=== PATIENT | female | born 1965 | race Two or more races ===

== ENCOUNTER → 2024-12-11 | Outpatient (CLI) | payer MEDICAID, SELFPAY ==
--- NOTE | 2024-12-11 13:30 | XR_ITS ---
MRI shoulder, right, without contrast. Date and time: December 11, 2024 at 1418 hours INDICATIONS: Right shoulder pain joint clicking stiffness 2 years post injury Technique: Multiple axial, sagittal and coronal sections of the shoulder have been obtained. Siemens high-resolution 1.5 [employer] MRI scanner is utilized. Axial fat-suppressed sections, TR 2350, TE 18 T2-weighted coronal fat-saturated images, TR 3500, TE 7100 T1-weighted coronal images, TR 500, TE 15 T2-weighted sagittal fat-saturated images, TR 3500, TE 57 T1-weighted sagittal sections, TR 504, TE 13. Findings: 3 cm full-thickness tear rotator cuff Subscapularis insertion is intact. Subscapularis bursa is not seen. Long head of the biceps is in the bicipital groove. No definite tear of the biceps superior labral anchor is seen. Retraction of the musculotendinous junction of the rotator cuff is prominent. Tendinosis pattern is moderate. Distance between the acromium and humeral head is 6 mm Atrophy of the supraspinatus muscle is severe. Atrophy of the infraspinatus muscle is moderate. Sagittal sections demonstrate a horizontal acromion. Acromioclavicular joint demonstrates moderate osteoarthritis. Osacromiale is not identified. Small anterior labral tears. Bony glenoid fossa on the sagittal sections does not demonstrate osseous defect. Occult fracture or area of avascular necrosis is not seen. Acromioclavicular joint separation is not visible. Defect in the posterolateral margin of the humeral head is not seen Impression: 3 cm full-thickness rotator cuff tear Small anterior labral tears
== END | disposition home or self-care (01) ==
PROVIDERS: PCP Physician Assistant; Referring Provider Physician Assistant; Visit Provider Physician Assistant
DX: S46.011A Strain of muscle(s) and tendon(s) of the rotator cuff of right shoulder, initial encounter (principal); S43.401A Unspecified sprain of right shoulder joint, initial encounter; X58.XXXA Exposure to other specified factors, initial encounter
CPT/HCPCS: 73221

== ENCOUNTER → 2024-12-31 | Outpatient (CLI) | payer MEDICAID, SELFPAY ==
--- NOTE | 2024-12-31 08:45 | XR_ITS ---
Examination: Screening digital mammography, bilateral Computer aided detection 3-D breast Tomosynthesis, bilateral Date and time of exam: 10/02/2024, 9:05 AM Comparisons: November 2023 Indications: Screening Technique: Nonmagnified MLO, CC views of the breasts to been obtained, reconstructed from 3-D Tomosynthesis images. R2 computer aided detection program utilized for evaluation of suspicious masses and/or abnormal calcifications. 3-D Tomosynthesis images obtained. Technologist: Findings: The breasts are heterogeneously dense, which may obscure small masses. No evidence of abnormal masses or suspicious calcifications. Impression: BI-RADS category 1: Negative findings (within normal) Recommend 1 year follow-up mammogram
== END | disposition home or self-care (01) ==
LOC: CDIM 08:50
PROVIDERS: Referring Provider Physician Assistant; Visit Provider Physician Assistant
DX: Z12.31 Encounter for screening mammogram for malignant neoplasm of breast (principal); R92.313 Mammographic fatty tissue density, bilateral breasts
CPT/HCPCS: 77063; 77067

== ENCOUNTER 2025-01-12 14:07 | Emergency (ER) | payer MEDICAID, SELFPAY ==
[2025-01-12 14:38] VITALS: BP 136/77; PULSE 76; RESP 18; TEMP 37; O2SAT 97; BMI 22.8
--- NOTE | 2025-01-12 15:21 | PD.EDEXREM ---
ED Extremity Problem RME/HPI General Chief complaint: Extremity Injury, Upper Stated complaint: rt shoulder surg to on . c/o swell. arm/face Time Seen by Provider: 01/12/25 15:07 Arrival date/time: 01/12/25 14:07 RME / HPI RME / HPI Narrative: 59 year old female who is s/p right shoulder surgery performed [address] Earl Yoo presents to the ED for evaluation of right arm redness/swelling/pain beginning . Accompanied by facial swelling with pain and rash in the right upper extremity. Reportedly the rash and redness was present while getting her dressings changed and nurse in the office had sent images to Dr. Yoo. Patient denies any known allergies or similar reaction to dressing/tape. Denies fevers or chills. Related Data Home Medications ?Medication ?Instructions ?Recorded ?Confirmed acetaminophen 650 mg 650 mg PO Q8H PRN Fever Or Pain 05/05/24 05/05/24 tablet,extended release loperamide 2 mg capsule 2 mg PO PRN PRN Diarrhea 05/05/24 05/05/24 Previous Rx's ?Medication ?Instructions ?Recorded ondansetron HCl 4 mg tablet 4 mg PO TID PRN Nausea And 05/05/24 Vomiting #10 tabs Allergies Allergy/AdvReac Type Severity Reaction Status Date / Time No Known Allergies Allergy Verified 01/12/25 14:16 Review of Systems Review of Systems Narrative Review of Systems: Gen: No fever, no chills, no weight loss EYES: No discharge, no visual changes, no pain HEENT: No ear pain, no congestion, no sore throat PULM: no shortness of breath, no cough, no congestion CV: No chest pain, no palpitations, no chest tightness GI: No nausea, no vomiting, no diarrhea, no pain, no constipation : No frequency, no urgency,? no dysuria Musc/skel: +right shoulder pain, no back pain Skin: + rash with itching sensation, no ecchymosis, no lesions Neuro: No weakness, no headache Past Medical History Past Medical History CARDIAC: Negative Congestive Heart Failure RESPIRATORY: Negative Chronic Obstructive Pulmonary Disease (COPD) GENITOURINARY: Negative Renal Disease ENDOCRINE: Negative Diabetes Mellitus Type 1 or Diabetes Mellitus Type 2 Social History SMOKING STATUS: Never smoker Course Quality Measures none Reevaluation(s) Reevaluation #1: We reviewed treatment plans. Patient is amenable to discharge. Strict return precautions were outlined. Patient was discharged in stable condition. Time: 15:50 Vital Signs Vital signs: Vital Signs Oxygen Delivery Method Room Air 01/12/25 14:07 Extremity Problem MDM Narrative MDM Narrative:: Brooke Packer am scribing for and in the presence of Dr. Jamison. Patient data External records reviewed:: [facility] previous records (I reviewed ED visit on 05/05/2024 ) Clinical information provided by:: patient Social determinants that could affect healthcare access:: none Patient has the following chronic illnesses:: s/p right shoulder surgery 4 days ago How is presenting disease/condition affected by chronic disease/condition?: exacerbated by Evaluation data The following diagnostics were reviewed and interpreted by me:: other (specify) (No diagnostics ordered ) Lab and/or radiology exams considered but not ordered:: None Interpretation Summary: As noted above Medications / Prescriptions Medications or Prescriptions considered but not ordered:: None Medication administrations:: None Consultations Consultation(s) initiated? (list below): Yes Consultation #1 (Physician, Specialty, Details): I spoke with ortho Dr. Yoo who performed patients surgery. Sent over images of patients shoulder/arm from todays visit. Does not recommend Prednisone and only Benadryl every 8 hours for the rash. Time: 15:47 Diagnosis Extremity Problem Differential Diagnosis: gout, cellulitis and superficial thrombophlebitis Most likely diagnosis given after review of the tests above:: allergic reaction to adhesive Admission Indicated Admission indicated?: not indicated Admission Request Was there a request for admission?: No Disposition Plan Disposition Plan: Discharge Discharge Attestation Discharge Attestation: The patient and all family members were given an opportunity to ask questions and understood the discharge instructions. Discharge instructions specifically effects, indications for sooner follow up or return to the emergency department, and the expected course of current diagnosis. Patient condition: Stable Discharge Plan Plan Patient Disposition: HOME (Self Care) Prescriptions/Referrals Prescriptions/Med Rec: No Action loperamide 2 mg capsule 2 mg PO PRN PRN (Reason: Diarrhea) acetaminophen 650 mg tablet extended release 650 mg PO Q8H PRN (Reason: Fever Or Pain) ondansetron HCl 4 mg tablet 4 mg PO TID PRN (Reason: Nausea And Vomiting) Qty: 10 0RF Referrals: Crissy Andino PA-C [Primary Care Provider] - In 1 week Problem List Clinical Impression: Allergic reaction to adhesive Patient/Caregiver Discharge Instructions Education Materials: ED Contact Dermatitis Additional Instructions: Difenhidramina (Benadryl) de venta taco, 50 mg, 3 veces al d?a, seg?n sea necesario, para la picaz?n. Tambi?n puede usar loci?n de almizcle, cubriendo solo las zonas con picaz?n. Contacte con fajardo traumat?logo en [place] para santhosh kristal de seguimiento esta semana. Puede regresar a urgencias antes si los s?ntomas empeoran o si surge alg?n problema nuevo o preocupante. Print Language: Estonian Stand Alone Forms: [employer] Award Info., Patient Portal Info Letter
[2025-01-12 16:27] VITALS: BP 136/64; PULSE 80; RESP 16; TEMP 36.6; O2SAT 98
[2025-01-12 16:28] VITALS: BP 136/64; PULSE 80; RESP 16; TEMP 36.6; O2SAT 98
== END 2025-01-12 16:26 | disposition home or self-care (01) ==
PROVIDERS: Emergency Provider Emergency Medicine; PCP Physician Assistant
DX: T65.891A Toxic effect of other specified substances, accidental (unintentional), initial encounter (principal); R21 Rash and other nonspecific skin eruption; Y92.531 Health care provider office as the place of occurrence of the external cause
CPT/HCPCS: 99281

== ENCOUNTER 2025-09-25 09:00 | Outpatient (RCR) | payer MEDICAID, SELFPAY ==
--- NOTE | 2025-09-12 11:13 | PT.OIERPT ---
PT OP Initial Eval Patient Information Outpatient Physical Therapy Treatment Date: 09/12/25 Visit Reasons: RIGHT SHOULDER SURGERY Medical Diagnosis: M25.511 Treatment Dx #1: R shoulder pain Treatment Dx #2: R shoulder ROM limitations Start of Care: 09/12/25 Date of Onset: 12/08/24 DOS Smoking Status Smoking Status: Never smoker Initial Assessment Subjective: Pt is 59 yr old kinyarwanda speaking female s/p R RCR presents with c/o pain and limited ROM. After the sx the R UE got infected and she was admitted at [facility]. Since then she reports limitations with haircare, reaching OH, lifting things and HH chores. PMH: none reported Pt goal: to reach up and do hair Objective: R shoulder AROM: ? FF: 95 deg ? Abd: 90 deg ? ER: 65 deg ? HBB: to R glute with pain ? Strength: 3+/5 in all planes ? PROM: end-range pain with capsular tightness Assessment: Pt presentation consistent with s/p R RCR and adhesive capsulitis of? shoulder. ROM limited in capsular pattern with pain that limits end-range ? tolerance into all planes but especially ER and IR.? Pt may benefit from ?skilled therapy and has fair rehab potential to meet goals. Pt would benefit from [place] of R shoulder. Short Term and Manufacturing Assembler Goals 1. Ind with HEP ? 2. Improved AROM of R shoulder to at least 135 deg FF, 125 deg abduction and 90 deg ? ER ? 3. Improved HBB ROM to L3 ? 4. Pt will reach OH x10 with <=4/10 pain Treatment Plan 1. Manual therapy ? 2. Therex ? 3. Modalities as indicated, moist heat pack, ice, electrical stimulation Frequency and Duration: 2x a week for 8 weeks plus the evaluation Certification Dates: 09/12/25 to 12/11/24 Procedure Charges OP PT Eval Mod Complex 30 minutes: Yes
--- NOTE | 2025-09-16 18:44 | PT.ODAYNRPT ---
PT Outpatient Daily Note OP Daily Note Outpatient Physical Therapy Treatment Date: 09/16/25 Visit Reasons: RIGHT SHOULDER SURGERY Subjective: Same as time of eval Objective: See F/S for therex MHP R shoulder x7' Assessment: Pt has moderate tissue irritability into Abduction and FF of R shoulder Plan: Continue per POC Length of Time (minutes) of Treatment: 30 Minutes Procedure Charges Therapeutic Exercise 30 minutes: Yes
--- NOTE | 2025-09-25 09:39 | PT.ODAYNRPT ---
PT Outpatient Daily Note OP Daily Note Outpatient Physical Therapy Treatment Date: 09/25/25 Visit Reasons: RIGHT SHOULDER SURGERY Subjective: Pt c/o pain that is worse with movement. Objective: see flow sheet for ther ex list. Assessment: Minimal guarding during PROM, pt jerking movements with elevation. Pt comes in to the clinic with arm guarded resting in her abdomen. Pt educated on allowing for arm to swing naturally and avoid guarding, pt agreed she would work on it. Plan: Continue per POC Length of Time (minutes) of Treatment: 30 Minutes Procedure Charges Therapeutic Exercise 30 minutes: Yes
== END 2025-09-25 23:59 | disposition home or self-care (01) ==
LOC: CPTX 09:00
PROVIDERS: PCP Physician Assistant; Referring Provider Physician Assistant; Visit Provider Physician Assistant
DX: M25.511 Pain in right shoulder (principal); Z98.890 Other specified postprocedural states
CPT/HCPCS: 97110; 97162